=== PATIENT | female | born 1995 | race Caucasian/White ===

== ENCOUNTER 2016-10-18 19:57 | Emergency (ER) | payer OTHER ==
--- NOTE | ~2016-10-18 | ER ---
PATIENT'S NAME: PK [facility] AGE: 20 Y [address] ROOM: [place] [address] LOCATION: ED ADMIT DATE: 10/18/2016 ER/Outpatient Report DISCHARGE DATE: 10/18/2016 FAMILY PHYSICIAN: Physician, Unknown ATTENDING PHYSICIAN: Stepan Dodd Time of Patient's Arrival: 7 hours. Time of Patient's Evaluation: 2015 hours. CHIEF COMPLAINT: Allergic reaction. HISTORY OF PRESENT ILLNESS: This is a 20-year-old female who presents to the ER. She states that she had started getting hives around 5 o'clock this evening. The patient states that she was driving in her car when she noticed it. She states that she had just eaten at the cafeteria just prior to this. She states that she has never had anything like this before. It started in the back of her head and then she had noticed hives spread all over her body. She went to [facility], she was evaluated, she was given some Benadryl and a steroid shot. They did call and wanted her to be further evaluated afterwards, so they sent her here to the emergency room. The patient states that she is feeling much better. She states initially she felt a little bit faint but she never had difficulty with breathing, no shortness of breath or cough, no vomiting or diarrhea. She states her hives have improved and she states that she would just like to be checked out and dismissed home if possible. ALLERGIES: NO KNOWN ALLERGIES. MEDICATIONS: None. PAST MEDICAL HISTORY: Negative. PAST SURGERIES: None. SOCIAL HISTORY: Denies smoking, drug, or alcohol use. REVIEW OF SYSTEMS: All systems were reviewed and were negative with the exception of those discussed in the HPI. PATIENT'S NAME: PK [facility] AGE: 20 Y [address] ROOM: [place] [address] LOCATION: ED ADMIT DATE: 10/18/2016 ER/Outpatient Report DISCHARGE DATE: 10/18/2016 FAMILY PHYSICIAN: Physician, Unknown ATTENDING PHYSICIAN: Stepan Dodd PHYSICAL EXAMINATION: VITAL SIGNS: Height 5 feet 8 inches stated, blood pressure is 127/64, pulse 82, respirations 18, temperature 98.7 degrees tympanically, and saturations 98% on room air. Page Coma Score is 15. GENERAL: Alert, calm, well-developed, 20-year-old, in no acute distress. HEENT: Head: Normocephalic. Eyes: Pupils are equal and reactive to light. Throat: No exudates or erythema. She has no angioedema. NECK: Supple. No lymphadenopathy. LUNGS: Clear to auscultation bilaterally. No stridors. No wheezing noted. HEART: Regular rate and rhythm. EXTREMITIES: No clubbing or cyanosis. SKIN: She does have diffuse hives throughout her body. She does have pictures on her cell phone to compare with and they have improved tremendously. LABORATORY DATA AND X-RAYS: None were done. IMPRESSION: Hives from allergic reaction. ASSESSMENT AND PLAN: I did give the patient reassurance. The patient states that she feels comfortable going home at this time. I will send her home with few prednisone tablets to take twice a day for the next couple of days. She may continue to use her Benadryl every 6 hours. Apply cool compresses to the skin, and she needs to follow up with primary care physician for followup care. The patient understands and agrees with care. ZARA DOWD PA-C FOR MD CARMELO CHILDERS/stalin /[id number] d: t: 10/22/16 1109, OUTPATIENT REPORT
== END 2016-10-18 20:38 | disposition disaster alternative care site (69) ==
LOC: GMED 19:57
DX: L50.0 Allergic urticaria (principal)